=== PATIENT | female | born 1990 | race Asian ===

== ENCOUNTER 2017-01-20 15:43 | Emergency (ER) | payer OTHER ==
[~2017-01-20] VITALS: Ht 152.4 cm; Wt 95.1 kg
[2017-01-20] MEDS ORDERED: PHEN-239 PO (15:56)
[2017-01-20 16:55] LABS: BASO # 0.1 K/mm3 (0.0-0.2); BASO % 0.9 % (0.0-1.0); EOS # 0.4 K/mm3 (0.0-0.50); EOS % 5.3 % (0.0-3.0); LARGE UNSTAINED CELL # 0.2 K/mm3 (0.0-0.4); LARGE UNSTAINED CELL % 2.2 % (0.0-4.0); LYMPH # 1.9 K/mm3 (1.5-6.5); LYMPH % 22.8 % (24.0-44.0); MEAN CORPUSCULAR HEMOGLOBIN 28.9 pg (27.0-33.0); MEAN CORPUSCULAR HGB CONC 32.9 g/dl (32.0-36.5); MEAN CORPUSCULAR VOLUME 87.9 fl (80.0-96.0); MONO # 0.4 K/mm3 (0.0-0.8); MONO % 4.4 % (0.0-5.0); NEUTROPHILS # 5.4 K/mm3 (1.8-7.7); NEUTROPHILS % 64.3 % (36.0-66.0); PLATELET COUNT, AUTOMATED 383 k/mm3 (150-450); RED CELL DISTRIBUTION WIDTH 12.1 % (11.5-14.5); WHITE BLOOD COUNT 8.4 K/mm3 (4.0-10.0)
[2017-01-20 17:29] LABS: ANION GAP 4 MEQ/L (8-16); BLOOD UREA NITROGEN 14 MG/DL (7-18); CALCIUM LEVEL 8.9 MG/DL (8.5-10.1); CARBON DIOXIDE LEVEL 28 MEQ/L (21-32); CHLORIDE LEVEL 106 MEQ/L (98-107); CREATININE FOR GFR 0.82 MG/DL (0.55-1.02); GLOMERULAR FILTRATION RATE > 60.0 (>60); GLUCOSE, FASTING 96 MG/DL (70-105); HCG, SERUM QUANTITATIVE 1652 MIU/ML; SODIUM LEVEL 138 MEQ/L (136-145)
[2017-01-20 17:57] VITALS: BP 127/95
--- NOTE | 2017-01-20 19:32 | REP ---
FIRST TRIMESTER ULTRASOUND: HISTORY: Left lower quadrant pain. The uterus measures 4.1 cm in transverse x 3.4 cm in AP x 7.5 cm in cephalocaudal dimensions. A gestational sac is present in the endometrial cavity. The gestational sac measures 3.3 mm corresponding to a gestational age of 5 weeks 0 days. There is no free pole. The right ovary measures 2.3 x 3 x 1.9 cm. The left ovary measures 1.5 x 2.1 x 1.9 cm There is no fluid in the cul-de-sac. IMPRESSION: A gestational sac is present in the endometrial cavity. Gestational age by ultrasound is 5 weeks 0 days. There is no pole. This may represent an early intrauterine versus a bladder ovum. An ectopic can not be excluded. A repeat examination is recommended for further evaluation. Signed by Chapin Jaramillo MD 01/20/2017 07:38 P
== END 2017-01-20 17:59 | disposition home or self-care (01) ==
LOC: M ED 15:43
DX: O26.891 Other specified pregnancy related conditions, first trimester (principal); R35.0 Frequency of micturition; M54.9 Dorsalgia, unspecified; Z3A.01 Less than 8 weeks gestation of pregnancy; Z79.899 Other long term (current) drug therapy

== ENCOUNTER → 2017-01-26 | Outpatient (REF) | payer OTHER ==
[~2017-01-26] MED LIST: ASPI81TA85 PO; B121000T PO; KEFL500C17 PO; PHEN-239 PO; PREN1PAK PO; TYLE500T78 PO
== END ==
LOC: M LAB REF 16:59
PROVIDERS: ATTEND Advanced Practice Midwife
DX: O36.80X0 Pregnancy with inconclusive fetal viability, not applicable or unspecified (principal)

== ENCOUNTER → 2017-02-08 | Outpatient (REF) | payer OTHER ==
[2017-02-08 14:13] LABS: MEAN CORPUSCULAR HEMOGLOBIN 29.2 pg (27.0-33.0); MEAN CORPUSCULAR HGB CONC 33.3 g/dl (32.0-36.5); MEAN CORPUSCULAR VOLUME 87.6 fl (80.0-96.0); RED CELL DISTRIBUTION WIDTH 12.3 % (11.5-14.5); WHITE BLOOD COUNT 8.7 K/mm3 (4.0-10.0)
[2017-02-08 14:43] LABS: FREE T4 0.94 NG/DL (0.76-1.46)
== END ==
LOC: M LAB REF 12:45
PROVIDERS: ATTEND Advanced Practice Midwife
DX: O36.80X0 Pregnancy with inconclusive fetal viability, not applicable or unspecified (principal); O99.89 Other specified diseases and conditions complicating pregnancy, childbirth and the puerperium; E04.9 Nontoxic goiter, unspecified; Z3A.00 Weeks of gestation of pregnancy not specified

== ENCOUNTER → 2017-03-31 | Outpatient (CLI) | payer OTHER | LOC: M LAB 10:45 | PROVIDERS: ATTEND Advanced Practice Midwife | DX: O99.89 Other specified diseases and conditions complicating pregnancy, childbirth and the puerperium (principal); E66.09 Other obesity due to excess calories; Z3A.00 Weeks of gestation of pregnancy not specified ==

== ENCOUNTER 2017-04-30 12:34 | Emergency (ER) | payer OTHER ==
[~2017-04-30] VITALS: Ht 154.9 cm; Wt 95.5 kg
[~2017-04-30 12:34] MED LIST changes: -ASPI81TA85 PO; -B121000T PO; -KEFL500C17 PO; -PREN1PAK PO; -TYLE500T78 PO
[2017-04-30] MEDS ORDERED: ASPI81TA85 PO (13:00)
[2017-04-30] MEDS ORDERED: TYLE500T78 PO (13:00)
[2017-04-30] MEDS ORDERED: B121000T PO (13:00)
[2017-04-30] MEDS ORDERED: PREN1PAK PO (13:00)
[2017-04-30 14:08] LABS: BASO % 0.2 % (0.0-1.0); EOS # 0.3 10^3/uL (0.0-0.50); EOS % 2.6 % (0.0-3.0); IMMATURE GRANULOCYTE % 0.4 % (0-0); LYMPH # 1.6 10^3/uL (1.5-6.5); MEAN CORPUSCULAR HEMOGLOBIN 28.7 pg (27.0-33.0); MEAN CORPUSCULAR HGB CONC 32.5 g/dl (32.0-36.5); MEAN CORPUSCULAR VOLUME 88.4 fl (80.0-96.0); MONO # 0.6 10^3/uL (0.0-0.8); NEUTROPHILS # 8.8 10^3/uL (1.8-7.7); NEUTROPHILS % 77.8 % (36.0-66.0); PLATELET COUNT, AUTOMATED 302 10^3/uL (150-450); RED CELL DISTRIBUTION WIDTH 12.5 % (11.5-14.5); WHITE BLOOD COUNT 11.3 10^3/uL (4.0-10.0)
[2017-04-30] MEDS ORDERED: ACETAMINOPHEN TAB 650MG DOSE (2X325MG) PO ONE (14:45)
[2017-04-30] MEDS ORDERED: KEFL500C17 PO (14:51)
--- NOTE | 2017-04-30 15:01 | REP ---
Obstetric ultrasound, stat emergency room request for amniotic fluid volume assessment: There is a single intrauterine gestation in a breech presentation. The placenta is anterior. There is no placenta previa. heart rate is 158 beats per minute. The amniotic fluid index is 12.3 which is in the normal range. Subjectively the amniotic fluid volume is normal. The LMP is unknown. The adnexa are not optimally evaluated. Signed by Lalo Varner MD 04/30/2017 02:52 P
[2017-04-30 15:15] VITALS: BP 132/81
== END 2017-04-30 15:16 | disposition home or self-care (01) ==
LOC: M ED 12:34
DX: O99.89 Other specified diseases and conditions complicating pregnancy, childbirth and the puerperium (principal); R78.81 Bacteremia; Z3A.19 19 weeks gestation of pregnancy; Z79.82 Long term (current) use of aspirin; Z79.899 Other long term (current) drug therapy

== ENCOUNTER → 2017-06-28 | Outpatient (CLI) | payer OTHER ==
[~2017-06-28] MED LIST changes: +ASPI81TA85 PO; +B121000T PO; +KEFL500C17 PO; +PREN1PAK PO; +TYLE500T78 PO
[2017-06-28 19:00] LABS: MEAN CORPUSCULAR HEMOGLOBIN 28.3 pg (27.0-33.0); MEAN CORPUSCULAR HGB CONC 32.3 g/dl (32.0-36.5); MEAN CORPUSCULAR VOLUME 87.6 fl (80.0-96.0); PLATELET COUNT, AUTOMATED 348 10^3/uL (150-450); RED CELL DISTRIBUTION WIDTH 12.6 % (11.5-14.5); WHITE BLOOD COUNT 11.1 10^3/uL (4.0-10.0)
[2017-06-28 19:28] LABS: ALT/SGPT 6 U/L (12-78); AST/SGOT 8 U/L (7-37); BILIRUBIN,TOTAL 0.1 MG/DL (0.2-1.0); CREATININE FOR GFR 0.45 MG/DL (0.55-1.02); GLOMERULAR FILTRATION RATE > 60.0 (>60); URIC ACID 3.6 MG/DL (2.6-6.0)
== END ==
LOC: M LAB 18:07
PROVIDERS: ATTEND Advanced Practice Midwife
DX: Z34.83 Encounter for supervision of other normal pregnancy, third trimester (principal); Z3A.00 Weeks of gestation of pregnancy not specified

== ENCOUNTER → 2017-06-29 | Outpatient (CLI) | payer OTHER ==
[2017-06-29 10:54] LABS: MEAN CORPUSCULAR HEMOGLOBIN 28.2 pg (27.0-33.0); MEAN CORPUSCULAR VOLUME 88.2 fl (80.0-96.0); PLATELET COUNT, AUTOMATED 309 10^3/uL (150-450); RED CELL DISTRIBUTION WIDTH 12.7 % (11.5-14.5); WHITE BLOOD COUNT 8.3 10^3/uL (4.0-10.0)
== END ==
LOC: M LAB 09:31
PROVIDERS: ATTEND Advanced Practice Midwife
DX: Z34.82 Encounter for supervision of other normal pregnancy, second trimester (principal)

== ENCOUNTER → 2017-08-16 | Outpatient (CLI) | payer OTHER ==
[2017-08-16 16:51] LABS: TOTAL VOLUME, URINE 1800 ML
[2017-08-16 17:03] LABS: HEMATOCRIT 38.2 % (36.0-47.0); HEMOGLOBIN 12.4 g/dl (12.0-16.0); MEAN CORPUSCULAR HEMOGLOBIN 28.6 pg (27.0-33.0); MEAN CORPUSCULAR HGB CONC 32.5 g/dl (32.0-36.5); MEAN CORPUSCULAR VOLUME 88.2 fl (80.0-96.0); PLATELET COUNT, AUTOMATED 301 10^3/uL (150-450); RED BLOOD COUNT 4.33 10^6/uL (4.00-5.40); RED CELL DISTRIBUTION WIDTH 13.3 % (11.5-14.5); WHITE BLOOD COUNT 9.8 10^3/uL (4.0-10.0)
[2017-08-16 18:31] LABS: ALT/SGPT 8 U/L (12-78); AST/SGOT 12 U/L (7-37); BILIRUBIN,TOTAL 0.3 MG/DL (0.2-1.0); CREATININE FOR GFR 0.46 MG/DL (0.55-1.30); GLOMERULAR FILTRATION RATE > 60.0 (>60); LDH LACTATE DEHYDROGENASE 128 U/L (84-246); URIC ACID 5.2 MG/DL (2.6-6.0)
[2017-08-16 18:35] LABS: CREATININE 24 HOUR, URINE 1382.4 MG/24HR (600-1800); CREATININE, URINE 76.8 MG/DL; TOTAL PROTEIN 24 HOUR URINE 412.2 MG/24HR (50-150); URINE TOTAL PROTEIN 22.9 MG/DL (0-12)
== END ==
LOC: M LRY 12:08
DX: O13.3 Gestational [pregnancy-induced] hypertension without significant proteinuria, third trimester (principal)

== ENCOUNTER 2017-08-17 10:15 | Outpatient (CLI) | payer OTHER ==
[2017-08-17 10:56] LABS: HEMOGLOBIN 12.2 g/dl (12.0-16.0); MEAN CORPUSCULAR HEMOGLOBIN 27.7 pg (27.0-33.0); MEAN CORPUSCULAR HGB CONC 32.1 g/dl (32.0-36.5); MEAN CORPUSCULAR VOLUME 86.2 fl (80.0-96.0); PLATELET COUNT, AUTOMATED 309 10^3/uL (150-450); RED BLOOD COUNT 4.41 10^6/uL (4.00-5.40); RED CELL DISTRIBUTION WIDTH 13.3 % (11.5-14.5); WHITE BLOOD COUNT 7.7 10^3/uL (4.0-10.0)
[2017-08-17 11:10] LABS: ALT/SGPT 7 U/L (12-78); AST/SGOT 10 U/L (7-37); BILIRUBIN,TOTAL 0.3 MG/DL (0.2-1.0); CREATININE FOR GFR 0.64 MG/DL (0.55-1.30); GLOMERULAR FILTRATION RATE > 60.0 (>60); LDH LACTATE DEHYDROGENASE 128 U/L (84-246); URIC ACID 5.1 MG/DL (2.6-6.0)
[2017-08-17 11:58] LABS: TOTAL PROTEIN,RANDOM URINE 29.6 MG/DL (0.0-12.0)
[2017-08-17] MEDS: LR 1,000 ML IV ×2 (12:18)
[2017-08-17] MEDS: BETAMETHASONE SOLUSPAN 6MG/ML INJ 5ML (J0702) IM ×2 (12:18)
[2017-08-17] MEDS: LABETALOL 200 MG TAB PO ×2 (21:07)
[2017-08-17] MEDS ORDERED: diphenhydrAMINE 50 MG CAP PO ×2 (22:45)
[2017-08-17] MEDS: ACETAMINOPHEN TAB 650MG DOSE (2X325MG) PO ×2 (23:13)
[2017-08-17] MEDS: diphenhydrAMINE 25 MG CAP PO ×2 (23:13)
[2017-08-18 06:36] LABS: HEMATOCRIT 35.4 % (36.0-47.0); HEMOGLOBIN 11.4 g/dl (12.0-16.0); MEAN CORPUSCULAR HEMOGLOBIN 28.3 pg (27.0-33.0); MEAN CORPUSCULAR HGB CONC 32.2 g/dl (32.0-36.5); MEAN CORPUSCULAR VOLUME 87.8 fl (80.0-96.0); PLATELET COUNT, AUTOMATED 268 10^3/uL (150-450); RED BLOOD COUNT 4.03 10^6/uL (4.00-5.40); RED CELL DISTRIBUTION WIDTH 13.3 % (11.5-14.5); WHITE BLOOD COUNT 10.9 10^3/uL (4.0-10.0)
[2017-08-18 07:03] LABS: ALT/SGPT 7 U/L (12-78); AST/SGOT 7 U/L (7-37); BILIRUBIN,TOTAL 0.2 MG/DL (0.2-1.0); CREATININE FOR GFR 0.54 MG/DL (0.55-1.30); GLOMERULAR FILTRATION RATE > 60.0 (>60); LDH LACTATE DEHYDROGENASE 124 U/L (84-246); URIC ACID 4.3 MG/DL (2.6-6.0)
[2017-08-18] MEDS: LABETALOL 200 MG TAB PO ×2 (09:25)
[2017-08-18] MEDS: BETAMETHASONE SOLUSPAN 6MG/ML INJ 5ML (J0702) IM ×2 (11:49)
== END 2017-08-18 12:28 | disposition home or self-care (01) ==
LOC: M LDO 10:15
DX: O26.893 Other specified pregnancy related conditions, third trimester (principal); Z3A.35 35 weeks gestation of pregnancy; O14.93 Unspecified pre-eclampsia, third trimester
CPT/HCPCS: J0702

== ENCOUNTER → 2017-08-24 | Outpatient (REF) | payer OTHER | LOC: M LAB REF 16:31 | DX: Z36.9 Encounter for antenatal screening, unspecified (principal); O09.893 Supervision of other high risk pregnancies, third trimester; Z3A.35 35 weeks gestation of pregnancy; B95.1 Streptococcus, group B, as the cause of diseases classified elsewhere | CPT/HCPCS: 87186 ==

== ENCOUNTER 2017-08-28 14:17 | Inpatient (IN) | payer OTHER ==
[2017-08-28] MEDS: LR 1,000 ML IV (14:45)
[2017-08-28 15:27] LABS: BASO % 0.3 % (0.0-1.0); EOS # 0.1 10^3/uL (0.0-0.50); EOS % 1.2 % (0.0-3.0); HEMATOCRIT 38.9 % (36.0-47.0); HEMOGLOBIN 12.5 g/dl (12.0-16.0); IMMATURE GRANULOCYTE % 0.4 % (0-3.0); LYMPH # 1.3 10^3/uL (1.5-6.5); LYMPH % 11.3 % (24.0-44.0); MEAN CORPUSCULAR HEMOGLOBIN 28.4 pg (27.0-33.0); MEAN CORPUSCULAR HGB CONC 32.1 g/dl (32.0-36.5); MEAN CORPUSCULAR VOLUME 88.4 fl (80.0-96.0); MONO # 0.7 10^3/uL (0.0-0.8); MONO % 6.2 % (0.0-5.0); NEUTROPHILS % 80.6 % (36.0-66.0); PLATELET COUNT, AUTOMATED 326 10^3/uL (150-450); RED CELL DISTRIBUTION WIDTH 13.3 % (11.5-14.5); WHITE BLOOD COUNT 11.2 10^3/uL (4.0-10.0)
[2017-08-28] MEDS: LR 300 ML IV (15:32)
[2017-08-28] MEDS: PENICILLIN G POTASSIUM IV 5 MU in D5W MINI-BAG PLUS 100 ML IV (15:32)
[2017-08-28 16:26] LABS: ALT/SGPT 10 U/L (12-78); AST/SGOT 13 U/L (7-37); BILIRUBIN,TOTAL 0.3 MG/DL (0.2-1.0); GLOMERULAR FILTRATION RATE > 60.0 (>60); LDH LACTATE DEHYDROGENASE 153 U/L (84-246); URIC ACID 5.9 MG/DL (2.6-6.0)
[2017-08-28] MEDS: OXYTOCIN DRIP 30 UNITS in APPROPRIATE DILUENT 1 EA IV (17:26)
[2017-08-28] MEDS: PENICILLIN G POTASSIUM IV 2.5 MU in D5W 100 ML IV ×2 (19:30→23:30)
[2017-08-28] MEDS: BUTORPHANOL 2 MG/ML INJ (J0595) IV (20:00)
[2017-08-28] MEDS: PROMETHAZINE INJ 25 MG/ML VIAL (J2550) IV (20:00)
[2017-08-28] MEDS ORDERED: FENTANYL 2MCG/ML ROPIVACAINE 0.2% IN 0.9% NACL 200ML IVBAG As Ordered (22:32)
[2017-08-28] MEDS ORDERED: ONDANSETRON 4MG/2ML VIAL (J2405) IV (23:30)
[2017-08-28] MEDS ORDERED: LACTATED RINGER'S 1000 ML IV (23:30)
[2017-08-28] MEDS ORDERED: FENTANYL/ROPIVACAINE/NACL BAG 200 ML EPIDURAL (23:30)
[2017-08-28] MEDS ORDERED: REFRIGERATOR IV KEYS XX (23:30)
[2017-08-28] MEDS ORDERED: diphenhydrAMINE INJ 50MG/ML VIAL (J1200) IV (23:30)
[2017-08-28] MEDS ORDERED: EPIDURAL/PCA KEYS XX (23:30)
[2017-08-28] MEDS ORDERED: EPIDURAL COMMENT XX (23:30)
[2017-08-28] MEDS ORDERED: NALOXONE INJ 0.4 MG/1 ML VIAL (J2310) IV (23:30)
[2017-08-28] MEDS ORDERED: ePHEDrine SULFATE 25 MG/5 ML(5MG/ML) SYRINGE IV (23:30)
[2017-08-29] MEDS: PENICILLIN G POTASSIUM IV 2.5 MU in D5W 100 ML IV (03:30)
[2017-08-29] MEDS: OXYTOCIN DRIP 30 UNITS in APPROPRIATE DILUENT 1 EA IV (05:55)
[2017-08-29] MEDS ORDERED: DIBUCAINE 1% OINTMENT 30GM TOP (06:00)
[2017-08-29] MEDS ORDERED: DOCUSATE SODIUM 100 MG CAP PO (06:00)
[2017-08-29] MEDS ORDERED: METHYLERGONOVINE MALEATE 0.2 MG TAB PO (06:00)
[2017-08-29] MEDS ORDERED: ANUSOL HC CREAM 30GM TOP (06:00)
[2017-08-29 07:12] LABS: HEMATOCRIT 35.9 % (36.0-47.0); HEMOGLOBIN 11.5 g/dl (12.0-16.0); MEAN CORPUSCULAR VOLUME 87.6 fl (80.0-96.0); PLATELET COUNT, AUTOMATED 282 10^3/uL (150-450); RED CELL DISTRIBUTION WIDTH 13.3 % (11.5-14.5); WHITE BLOOD COUNT 17.6 10^3/uL (4.0-10.0)
[2017-08-29 07:35] LABS: ALT/SGPT 6 U/L (12-78); AST/SGOT 11 U/L (7-37); BILIRUBIN,TOTAL 0.5 MG/DL (0.2-1.0); CREATININE FOR GFR 0.51 MG/DL (0.55-1.30); GLOMERULAR FILTRATION RATE > 60.0 (>60); LDH LACTATE DEHYDROGENASE 142 U/L (84-246); URIC ACID 5.9 MG/DL (2.6-6.0)
[2017-08-29] MEDS: IBUPROFEN 800 MG TAB PO ×2 (08:41→19:32)
[2017-08-29] MEDS: PRENATAL VITAMINS CHEWABLE TABLET PO (09:00)
[2017-08-29] MEDS: ACETAMINOPHEN 500 MG TAB PO ×2 (10:11→20:50)
[2017-08-29] MEDS: MEASLES,MUMPS,RUBELLA VACCINE INJ (MMR-II) (90707) SC (23:51)
[2017-08-29] MEDS: RHOGAM 300 MCG (1500 IU) INJ (J2790) IM (23:51)
[2017-08-30] MEDS: IBUPROFEN 800 MG TAB PO ×2 (03:30→14:58)
[2017-08-30] MEDS: ACETAMINOPHEN 500 MG TAB PO ×2 (03:31→14:59)
[2017-08-30] MEDS: PRENATAL VITAMINS CHEWABLE TABLET PO (08:07)
[2017-08-31] MEDS: IBUPROFEN 800 MG TAB PO (05:48)
[2017-08-31] MEDS: ACETAMINOPHEN 500 MG TAB PO (05:48)
[2017-08-31] MEDS: PRENATAL VITAMINS CHEWABLE TABLET PO (09:33)
== END 2017-08-31 15:30 | disposition home or self-care (01) | DRG 775 ==
LOC: M LDI 14:17 → M OBS 08-29 07:50
PROC: 3E033VJ Introduction of Other Hormone into Peripheral Vein, Percutaneous Approach (ICD-10-PCS; 2017-08-28)
PROC: 10907ZC Drainage of Amniotic Fluid, Therapeutic from Products of Conception, Via Natural or Artificial Opening (ICD-10-PCS; 2017-08-28)
PROC: 10E0XZZ Delivery of Products of Conception, External Approach (ICD-10-PCS; principal; 2017-08-29)
PROC: 0HQ9XZZ Repair Perineum Skin, External Approach (ICD-10-PCS; 2017-08-29)
DX: O14.14 Severe pre-eclampsia complicating childbirth (principal); Z37.0 Single live birth; Z3A.36 36 weeks gestation of pregnancy; O34.211 Maternal care for low transverse scar from previous cesarean delivery; E66.9 Obesity, unspecified; O99.214 Obesity complicating childbirth; O99.820 Streptococcus B carrier state complicating pregnancy; O70.0 First degree perineal laceration during delivery